=== PATIENT | female | born 1965 | race Caucasian/White ===

== ENCOUNTER 2017-11-17 12:08 | Emergency (ER) | payer SELFPAY ==
[2017-11-17 12:17] VITALS: BP 144/94; PULSE 72; TEMP 97.6; BMI 25.8
--- NOTE | 2017-11-17 12:36 | PDOC ---
*Physical Exam - Vital Signs Last Vital Signs Temp Pulse Resp BP Pulse Ox 97.6 F 72 18 144/94 100 11/17/17 12:13 11/17/17 12:13 11/17/17 12:13 11/17/17 12:13 11/17/17 12:13 Medical Decision Making - Medical Decision Making 11/17/17 14:24 52yo F p/w bilateral shoulder pain Sx began approximately 3 weeks ago No nausea, vomiting, visual changes, upper extremity weakness, chest pain or shortness of breath. No limitations in ROM of arms D/c to home Pt seen by Midlevel Provider under my direct supervision I agree with plan as outlined by Midlevel Provider *DC/Admit/Observation/Transfer Diagnosis at time of Disposition: Shoulder pain, bilateral - Discharge Dispostion Disposition: HOME Condition at time of disposition: Good - Referrals - Patient Instructions Printed Discharge Instructions: DI for Shoulder Pain Additional Instructions: Please take Tylenol or Motrin for pain as needed and continue to follow-up with your primary doctor - Post Discharge Activity
[2017-11-17] MEDS ORDERED: IBUPROFEN 400 MG TABLET (FP) PO ONE ×2 (12:52→12:58)
--- NOTE | 2017-11-17 12:57 | PDOC ---
History of Present Illness - General Chief Complaint: Pain Stated Complaint: LT/RT ARM PAIN Time Seen by Provider: 11/17/17 12:33 History Source: Patient - History of Present Illness Occurred: reports: other Severity: reports: moderate Upper Extremity Pain Location: bilateral: shoulder Past History - Past Medical History Allergies/Adverse Reactions: Allergies Allergy/AdvReac Type Severity Reaction Status Date / Time No Known Allergies Allergy Verified 11/17/17 12:13 Home Medications: Ambulatory Orders Cyclobenzaprine HCl [Flexeril -] 10 mg PO Q8H PRN #21 tablet 08/31/15 Naproxen [Naprosyn -] 500 mg PO BID PRN #14 tablet 08/31/15 COPD: No - Immunization History Immunization Up to Date: Yes - Suicide/Smoking/Psychosocial Hx Smoking History: Never smoked Hx Alcohol Use: No Substance Use Type: None Review of Systems - Review of Systems Constitutional: No: Chills, Fever Respiratory: No: Shortness of Breath Cardiac (ROS): No: Chest Pain, Lightheadedness, Palpitations ABD/GI: No: Nausea, Vomiting Musculoskeletal: Yes: Joint Pain. No: Joint Swelling Neurological: Yes: Headache, Dizziness. No: Numbness, Tingling, Weakness *Physical Exam - Vital Signs Last Vital Signs Temp Pulse Resp BP Pulse Ox 97.6 F 72 18 144/94 100 11/17/17 12:13 11/17/17 12:13 11/17/17 12:13 11/17/17 12:13 11/17/17 12:13 - Physical Exam General Appearance: Yes: Appropriately Dressed. No: Apparent Distress HEENT: positive: Normal Voice Neck: positive: Supple Respiratory/Chest: positive: Lungs Clear, Normal Breath Sounds. negative: Respiratory Distress Cardiovascular: positive: Regular Rate, S1, S2 Gastrointestinal/Abdominal: positive: Soft. negative: Tender Extremity: positive: Normal Inspection, Normal Range of Motion (w/ pain on ROM to R shoulder). negative: Swelling Integumentary: positive: Dry, Warm Neurologic: positive: Fully Oriented, Alert, Normal Mood/Affect, Motor Strength 5/5 Medical Decision Making - Medical Decision Making 11/17/17 12:52 52-year-old female, denies any past medical history here with bilateral shoulder pain. Patient states approximately 3 weeks ago she developed occipital pain radiating to her neck and bilateral shoulders, worse with movement. No trauma but states she works out almost daily. Also reports intermittent lightheadedness mostly on supine position. No nausea, vomiting, visual changes, upper extremity weakness, chest pain or shortness of breath. States she was seen by her primary doctor last week and had EKG and blood work which was all normal as per patient, here because she continues to have mostly right shoulder pain worse with movement. Has not taken any pain meds because " I don't believe in medication" as per patient See exam Atraumatic b/l UE pain x 3 weeks No CP/SOB Neg ekg/labs in PMD's office last week Pt stable and well yannick w/ exam only remarkable for pain w/ ROM to R shoulder No e/o concerning pathology at this time UE pain m/l MSK -dc w/ pain control and continued PMD f/u 11/17/17 12:56 11/17/17 12:56 *DC/Admit/Observation/Transfer Diagnosis at time of Disposition: Shoulder pain, bilateral Qualifiers: Chronicity: acute Qualified Code(s): M25.511 - Pain in right shoulder; M25.512 - Pain in left shoulder; M25.512 - Pain in left shoulder - Discharge Dispostion Disposition: HOME Condition at time of disposition: Good - Referrals - Patient Instructions Printed Discharge Instructions: DI for Shoulder Pain Additional Instructions: Please take Tylenol or Motrin for pain as needed and continue to follow-up with your primary doctor - Post Discharge Activity
== END 2017-11-17 13:18 | disposition home or self-care (01) ==
LOC: JER 12:08
DX: M25.511 Pain in right shoulder (principal); M25.512 Pain in left shoulder
CPT/HCPCS: 99282-25

== ENCOUNTER 2020-12-09 15:06 | Emergency (ER) | payer OTHER ==
[2020-12-09 15:11] VITALS: BP 154/94; PULSE 85; TEMP 97.8; BMI 25.4
[2020-12-09] MEDS ORDERED: SODIUM CHLORIDE 1,000 ML IV STA (15:59)
[2020-12-09 16:29] LABS: BASO % 0.5 % (0-2.0); EOS % 2.3 % (0-4.5); HEMATOCRIT 40.8 % (32.4-45.2); HEMOGLOBIN 13.5 GM/dL (10.7-15.3); LYMPH % 21.8 % (8-40); MCH 30.9 pg (25.7-33.7); MCHC 33.2 g/dl (32.0-36.0); MEAN PLT VOLUME 12.2 fl (7.5-11.1); MONO % 5.1 % (3.8-10.2); NEUT % 70.3 % (42.8-82.8); PLATELET COUNT 134 K/MM3 (134-434); RBC 4.39 M/mm3 (3.60-5.2); RDW 12.7 % (11.6-15.6); URINE APPEARANCE CLEAR; URINE BILIRUBIN NEGATIVE (NEGATIVE); URINE COLOR YELLOW; URINE GLUCOSE (UA) NEGATIVE (NEGATIVE); URINE KETONE NEGATIVE (NEGATIVE); URINE LEUK ESTERASE NEGATIVE (NEGATIVE); URINE NITRITE NEGATIVE (NEGATIVE); URINE PROTEIN NEGATIVE (NEGATIVE); URINE UROBILINOGEN 0.2 mg/dL (0.2-1.0); WHITE BLOOD COUNT 6.1 K/mm3 (4.0-10.0)
[2020-12-09 16:35] LABS: INR 1.15 (0.83-1.09); PROTHROMBIN TIME (PATIENT) 14.1 SEC (9.7-13.0)
[2020-12-09 16:48] LABS: CHLORIDE 104 mmol/L (98-107); POTASSIUM 3.8 mmol/L (3.5-5.1); SODIUM 138 mmol/L (136-145)
[2020-12-09 16:50] LABS: ALBUMIN 3.8 g/dl (3.4-5.0); ANION GAP 3 MMOL/L (8-16); CALCIUM 9.1 mg/dL (8.5-10.1); CO2 31 mmol/L (21-32); GLUCOSE,RANDOM 97 mg/dL (74-106)
[2020-12-09 16:53] LABS: SGOT/AST 16 U/L (15-37); SGPT/ALT 23 U/L (13-61)
[2020-12-09 16:54] LABS: CREATININE 0.9 mg/dL (0.55-1.3)
[2020-12-09 16:55] LABS: BILIRUBIN,TOTAL 0.3 mg/dL (0.2-1); TOT PROT 8.1 g/dl (6.4-8.2)
[2020-12-09 16:56] LABS: ALK PHOS 66 U/L (45-117)
== END 2020-12-09 18:01 | disposition home or self-care (01) ==
LOC: JER 15:06
PROC: 3E0337Z Introduction of Electrolytic and Water Balance Substance into Peripheral Vein, Percutaneous Approach (ICD-10-PCS; principal; 2020-12-09)
DX: I10 Essential (primary) hypertension (principal)
CPT/HCPCS: 36415; 80053; 81003; 82550; 84443; 84484; 85025; 85610; 87077; 87086; 93005; 93010; 96360; 99284-25